=== PATIENT | female | born 1965 | race American Indian/Alaskan Native ===

== ENCOUNTER 2018-01-07 10:17 | Emergency (ER) | payer MEDICAID ==
[~2018-01-07] VITALS: Ht 152.4 cm; Wt 84.7 kg
[2018-01-07 10:24] VITALS: BP 126/73
[2018-01-07] MEDS ORDERED: cephalexin 250mg capsule PO ONE (11:00)
[2018-01-07] MEDS ORDERED: ondansetron 4mg rapidly disintigrating tab PO ONE (11:00)
[2018-01-07] MEDS ORDERED: CEPH250T PO ×2 (11:01→11:09)
[2018-01-07] MEDS ORDERED: ONDA8TAB9 PO (11:01)
[2018-01-07] MEDS ORDERED: PROC5TAB56 PO (11:09)
== END 2018-01-07 11:27 | disposition home or self-care (01) ==
LOC: ER 10:17
DX: L08.9 Local infection of the skin and subcutaneous tissue, unspecified (principal); R00.0 Tachycardia, unspecified; F41.9 Anxiety disorder, unspecified; Z79.899 Other long term (current) drug therapy
CPT/HCPCS: 93005; 99283

== ENCOUNTER 2018-01-11 09:58 | Emergency (ER) | payer MEDICAID ==
[~2018-01-11] VITALS: Ht 162.6 cm; Wt 81.8 kg
[~2018-01-11 09:58] MED LIST: CEPH250T PO; PROC5TAB56 PO
[2018-01-11 10:05] VITALS: BP 119/58
[2018-01-11] MEDS ORDERED: SULF1TAB49 PO (10:57)
== END 2018-01-11 11:10 | disposition home or self-care (01) ==
LOC: ER 09:59
DX: L02.212 Cutaneous abscess of back [any part, except buttock and flank] (principal); Z79.899 Other long term (current) drug therapy
CPT/HCPCS: 99283; A6257